=== PATIENT | male | born 1965 | race Caucasian/White ===

== ENCOUNTER 2019-06-11 13:19 | Day surgery (SDC) | payer OTHER, SELFPAY ==
[2019-06-11 14:02] VITALS: BP 158/103; PULSE 74; RESP 16; TEMP 36.1; O2SAT 98; BMI 30.4
--- NOTE | 2019-06-11 14:17 | PM.HP.1 ---
History of Present Illness History of Present Illness Date Patient Seen: 06/11/19 Time Patient Seen: 14:18 Chief complaint: [id number] Narrative: Patient presents for colorectal screening. Most recent colonoscopy was 5 years ago in significant for adenomatous polyps.. On further history denies any recent gastrointestinal symptoms. No nausea, vomiting, abdominal pain, loss of appetite, unexplained weight loss, change in bowel habits, diarrhea, constipation, melena, hematochezia, or bright red blood per rectum. Patient History Medical History GERD (gastroesophageal reflux disease) (Acute) Hypertension (Acute) Sleep apnea (Acute) Family & Social History Social History: household members spouse Meds Home Medications and Allergies Home Medications Medication Instructions Recorded Confirmed Type lisinopril 10 mg PO DAILY 06/11/19 06/11/19 History omeprazole 20 mg PO DAILY 06/11/19 06/11/19 History Allergies Allergy/AdvReac Type Severity Reaction Status Date / Time No Known Drug Allergies Allergy Verified 06/11/19 14:00 Review of Systems Review of Systems ROS Unobtainable: All systems reviewed & are unremarkable except as noted in HPI and below Exam Vital Signs (past 8 hours): - 06/11/19 14:02 Temperature 96.9 F L Pulse Rate 74 Respiratory Rate 16 Blood Pressure 158/103 H Pulse Oximetry 98 Oxygen Delivery Method Room Air Narrative Exam Narrative: General-no acute distress, well nourished HEENT-moist mucous membranes, no scleral icterus Neck-supple, no lymphadenopathy Chest- non labored respirations, clear to auscultation bilaterally Cardiac-regular rate no peripheral edema Abdomen-soft, nontender, non distended Extremities-warm, well perfused Neurological-alert and oriented, no focal deficits Assessment & Plan Assessment and plan (1) Screening for colon cancer: Current visit: Yes Status: Acute Assessment & Plan narrative: The patient requires colorectal screening and colonoscopy is recommended. Technical details were discussed. Risks, benefits, alternatives explained. Risks including but not limited to myocardial infarction, aspiration, bleeding, pain, missed lesion, incomplete examination, need for further radiographic studies, colonic perforation, and need for major abdominal surgery were discussed. All questions were answered to their satisfaction, and they are in agreement with this plan.
[2019-06-11] MEDS: SODIUM CHLORIDE 0.9% 1,000 ML 200 ML IV (14:21)
--- NOTE | 2019-06-11 14:24 | PM.OP.ENDO ---
Operative Date/Time/Diagnoses Date of procedure: 06/11/19 Time of procedure: 14:24 Pre-op diagnosis: Screening colonoscopy, history of polyps Post-op diagnosis: other (inadequte preparation) Procedure & Clinicians Study performed: Colonoscopy Same procedure as scheduled: Yes Indications: This is a 54-year-old gentleman with a previous colonoscopy 5 years ago significant for adenomatous polyps. Surgeon: Destin Emerson Procedure Notes SCOAP/Timeout: Performed Procedure in detail: Patient placed in left lateral decubitus position. Time out was performed. Procedural sedation was administered with Versed and Fentanyl. A rectal exam demonstrated no external hemorrhoids no internal masses. Colonoscopy scope was placed into the rectum. The quality of the prep was extremely poor. Attempt was made to irrigate without significant improvement. The procedure was aborted. Scope withdrawal time: NA Sedation minutes: 5 Findings: other findings (inadequate preparation) Complications: none Impression: inadequate preparation Post-procedure Recommendations: Other recommendation (repeat colonoscopy with adequate preparation) Disposition: same day surgery
[2019-06-11] MEDS: fentaNYL 250 MCG/5 ML INJ IV (14:34)
[2019-06-11] MEDS: MIDAZOLAM 5 MG/5 ML VIAL IV (14:34)
[2019-06-11 14:40] VITALS: BP 134/90; PULSE 63; RESP 21; TEMP 37.3; O2SAT 92
[2019-06-11 14:45] VITALS: BP 130/89; PULSE 66; RESP 21; O2SAT 92
[2019-06-11 14:50] VITALS: BP 128/87; PULSE 65; RESP 17; O2SAT 90
[2019-06-11 14:55] VITALS: BP 130/88; PULSE 63; RESP 16; TEMP 36.8; O2SAT 93
[2019-06-11 15:15] VITALS: BP 129/86; PULSE 64; RESP 16; TEMP 36.7; O2SAT 96
--- NOTE | 2019-06-11 16:05 | SUR.PHASEII ---
Assumed carer from GÉNESIS Ya. Pt placed on continuous pulse ox as pt still requiring oxygen per nasal cannula. Pt r/a sats 82%. Placed on 4 l now weaned down to 3. Sats 91%. Worked with pt using incentive spirometer. Pt gets it up to 900. at bedside. d/c instructions discussed.
--- NOTE | 2019-06-11 16:09 | SUR.PHASEII ---
assumed catre from [facility]ak[facility]. brought in, results discussed, pt and wanting to talk with Dr. Emerson. dr. Emerson to bedside, spoke at length with both. Both were satisfied. Pt got dressed soon after, and left when ready and left in stable condition.
== END 2019-06-11 15:45 | disposition home or self-care (01) ==
PROVIDERS: Family Provider Nutritionist; PCP Nurse Practitioner Family; Visit Provider Surgery
PROC: 0DJD8ZZ Inspection of Lower Intestinal Tract, Via Natural or Artificial Opening Endoscopic (ICD-10-PCS; CPT 45378; principal; 2019-06-11 14:30)
DX: Z86.010 Personal history of colon polyps (principal); Z53.09 Procedure and treatment not carried out because of other contraindication; I10 Essential (primary) hypertension; G47.30 Sleep apnea, unspecified
CPT/HCPCS: 45330; J2250; J3010

== ENCOUNTER 2019-09-07 06:40 | Day surgery (SDC) | payer OTHER, SELFPAY ==
[2019-09-07 07:06] VITALS: BMI 30.7
[2019-09-07 07:12] VITALS: BP 128/77; PULSE 76; RESP 12; TEMP 36.2; O2SAT 97
[2019-09-07] MEDS: SODIUM CHLORIDE 0.9% 1,000 ML 200 ML IV (07:24)
--- NOTE | 2019-09-07 07:44 | PM.HP.1 ---
History of Present Illness History of Present Illness Date Patient Seen: 09/07/19 Time Patient Seen: 07:45 Chief complaint: [id number] Narrative: Patient presents for colorectal screening. The previous colonoscopy 5 years ago that was significant for adenomatous polyps. I attempted to perform the colonoscopy several months ago but needed to be aborted secondary to poor prep. No personal or family history of colon cancer. On further history denies any recent gastrointestinal symptoms. No nausea, vomiting, abdominal pain, loss of appetite, unexplained weight loss, change in bowel habits, diarrhea, constipation, melena, hematochezia, or bright red blood per rectum. Patient History Medical History GERD (gastroesophageal reflux disease) (Acute) Hypertension (Acute) Sleep apnea (Acute) Family & Social History Social History: household members spouse Tobacco & Substance use: Smoking Status Never smoker alcohol intake former Substance Use Type does not use Meds Home Medications and Allergies Home Medications Medication Instructions Recorded Confirmed Type lisinopril 10 mg PO DAILY 06/11/19 09/07/19 History omeprazole 20 mg PO DAILY 06/11/19 09/07/19 History Allergies Allergy/AdvReac Type Severity Reaction Status Date / Time No Known Drug Allergies Allergy Verified 09/07/19 07:03 Review of Systems Review of Systems Narrative: A 10 point review of systems is negative except as noted in the HPI Exam Vital Signs (past 8 hours): - 09/07/19 07:12 Temperature 97.1 F L Pulse Rate 76 Respiratory Rate 12 Blood Pressure 128/77 Pulse Oximetry 97 Oxygen Delivery Method Room Air Narrative Exam Narrative: General-no acute distress, well nourished HEENT-moist mucous membranes, no scleral icterus Neck-supple, no lymphadenopathy Chest- non labored respirations, clear to auscultation bilaterally Cardiac-regular rate no peripheral edema Abdomen-soft, nontender, non distended Extremities-warm, well perfused Neurological-alert and oriented, no focal deficits Assessment & Plan Assessment and plan (1) Screening for colon cancer: Current visit: No Status: Acute Assessment & Plan narrative: The patient requires colorectal screening and colonoscopy is recommended. Technical details were discussed. Risks, benefits, alternatives explained. Risks including but not limited to myocardial infarction, aspiration, bleeding, pain, missed lesion, incomplete examination, need for further radiographic studies, colonic perforation, and need for major abdominal surgery were discussed. All questions were answered to their satisfaction, and they are in agreement with this plan.
[2019-09-07] MEDS: MIDAZOLAM 5 MG/5 ML VIAL IV (07:47)
[2019-09-07] MEDS: fentaNYL 250 MCG/5 ML INJ IV (07:47)
--- NOTE | 2019-09-07 08:11 | PM.OP.ENDO ---
Operative Date/Time/Diagnoses Date of procedure: 09/07/19 Time of procedure: 08:11 Pre-op diagnosis: Screening colonoscopy Post-op diagnosis: same Procedure & Clinicians Study performed: Colonoscopy Same procedure as scheduled: Yes Indications: 54-year-old male last colonoscopy 5 years ago demonstrated adenomatous polyps here for follow-up. Surgeon: Destin Emerson Procedure Notes SCOAP/Timeout: Performed Procedure in detail: Patient placed in left lateral decubitus position. Time out was performed. Procedural sedation was administered with Versed and Fentanyl. A rectal exam demonstrated no external hemorrhoids no internal masses. Colonoscopy scope was placed into the rectum and advanced through the colon to the cecum. The ileocecal valve was identified. The scope was then slowly withdrawn examining colon thoroughly in all directions. The colonoscopy was notable for the following 1. Sigmoid diverticulosis 2. Grade 1 internal hemorrhoids 3. Quality of prep fair Scope withdrawal time: 6 Sedation minutes: 17 Findings: diverticulosis and internal hemorrhoids Specimen(s): none sent Complications: none Impression: Diverticulosis Post-procedure Recommendations: Colonscopy in 10 years Disposition: same day surgery
[2019-09-07 08:16] VITALS: BP 113/73; PULSE 64; TEMP 36.4; O2SAT 92
[2019-09-07 08:22] VITALS: BP 107/68; PULSE 64; RESP 16; O2SAT 93
[2019-09-07 08:26] VITALS: BP 107/69; PULSE 64; RESP 15; O2SAT 94
[2019-09-07 09:00] VITALS: BP 107/68; PULSE 63; RESP 16; TEMP 36.6; O2SAT 96
== END 2019-09-07 08:45 | disposition home or self-care (01) ==
PROVIDERS: Family Provider Nutritionist; PCP Nurse Practitioner Family; Visit Provider Surgery
PROC: 0DJD8ZZ Inspection of Lower Intestinal Tract, Via Natural or Artificial Opening Endoscopic (ICD-10-PCS; CPT 45378; principal; 2019-09-07 07:45)
DX: Z12.11 Encounter for screening for malignant neoplasm of colon (principal); K21.9 Gastro-esophageal reflux disease without esophagitis; I10 Essential (primary) hypertension; G47.30 Sleep apnea, unspecified; K64.0 First degree hemorrhoids; K57.30 Diverticulosis of large intestine without perforation or abscess without bleeding
CPT/HCPCS: 45378; 99152; J2250; J3010